=== PATIENT | male | born 1940 | race Caucasian/White ===

== ENCOUNTER → 2021-06-05 | Outpatient (CLI) | payer OTHER ==
[~2021-06-05] MED LIST: Voltaren Gel 1 % TOP
== END ==
LOC: KOH-I 13:51
DX: M25.571 Pain in right ankle and joints of right foot (principal); M25.572 Pain in left ankle and joints of left foot; M79.672 Pain in left foot; M79.671 Pain in right foot; M20.12 Hallux valgus (acquired), left foot; M20.11 Hallux valgus (acquired), right foot; M21.6X1 Other acquired deformities of right foot; R93.6 Abnormal findings on diagnostic imaging of limbs
CPT/HCPCS: 73610; 73630

== ENCOUNTER → 2021-09-05 | Outpatient (CLI) | payer MEDICARE | LOC: KOH-I 08:00 | DX: Z01.818 Encounter for other preprocedural examination (principal); M21.071 Valgus deformity, not elsewhere classified, right ankle; S96.911A Strain of unspecified muscle and tendon at ankle and foot level, right foot, initial encounter | CPT/HCPCS: 93926 ==

== ENCOUNTER → 2021-09-15 | Outpatient (CLI) | payer MEDICARE | LOC: KOH-I 09-12 16:30 | DX: M21.541 Acquired clubfoot, right foot (principal); M21.961 Unspecified acquired deformity of right lower leg; E11.40 Type 2 diabetes mellitus with diabetic neuropathy, unspecified; M19.071 Primary osteoarthritis, right ankle and foot; M11.271 Other chondrocalcinosis, right ankle and foot | CPT/HCPCS: 73700 ==